=== PATIENT | male | born 1965 | race African-American/Black ===

== ENCOUNTER 2017-01-02 00:24 | Observation (INO) | payer MEDICAID, OTHER ==
[~2017-01-02] VITALS: Ht 180.3 cm; Wt 79.4 kg
[2017-01-02] MEDS ORDERED: cloNIDine HCL 0.1 MG TAB ONE (00:43)
[2017-01-02] MEDS ORDERED: cloNIDine 0.2 mg/24hr 7DAY PATCH TD ONE (00:45)
[2017-01-02] MEDS ORDERED: cloNIDine HCL 0.1 MG TAB PO ONE ×2 (01:00→08:15)
[2017-01-02] MEDS ORDERED: LORazepam 0.5 MG TAB PO ONE (09:30)
[2017-01-02 10:53] VITALS: BP 118/77
== END 2017-01-02 11:59 | disposition home or self-care (01) | DRG 199 ==
LOC: ER 00:24 → OVERFLOW 08:05 → ER 11:59 → UNDOADMOB 11:59
PROVIDERS: ADMIT Emergency Medicine; ATTEND Emergency Medicine
DX: I10 Essential (primary) hypertension (principal); F17.210 Nicotine dependence, cigarettes, uncomplicated; J45.909 Unspecified asthma, uncomplicated
CPT/HCPCS: 70450; 93005; 99285; G0378